=== PATIENT | male | born 1950 | race Caucasian/White ===

== ENCOUNTER 2023-12-26 17:52 | Emergency (ER) | payer MEDICARE, SELFPAY ==
[2023-12-26 17:52] VITALS: BMI 28.6
[2023-12-26 17:56] VITALS: BP 117/80
--- NOTE | 2023-12-26 18:40 | ED.GENMED ---
History of Present Illness
General
Chief Complaint: Musculo-Skeletal Complaint
Source: patient
Exam Limitations: none
Time Seen by Provider: 12/26/23 18:30
Travel History
Have you had any contact with someone who has COVID-19?: No
Do you have any symptoms of coronavirus? Fever > 100 degrees, chills, cough, shortness of breath, sore throat, loss of taste or smell, muscle aches, or headache?: No
History of Present Illness
History of Present Illness:
This is a 73 year old male that comes in with c/o low back pain. States that his pain started 3-4 weeks ago and there was no injury. States that today at 10am he went to get out of a chair and had acute pain. States that this lasted for a few
mini and his gave him Advil with Tylenol. States that he just wanted to mention that 3-4 days ago he also had yellowish discharge form his nose and it was gone in 1-2 days. Denies any fever, chills, chest pain, SOB, abd pain, nausea, vomiting,
diarrhea, bowel or bladder incont, headache, dizziness, urinary burning.
Past History
Past History
ED Past Medical History: CVA (Slight left sided tremor of hand ), HTN and Hypercholesterolemia
ED Past Surgical History: Other (Nola-Fernandez tear with repair, Hemorrhoidectomy)
Social History
Tobacco: Smoker (occasional cigar, )
Alcohol: Occasional
Personal:
Living: with family
Review of Systems
Review of Systems
All Other Systems: ROS reviewed and negative except as documented in HPI and ROS
Constitutional: Reports no symptoms; Denies fever or chills
EENT: Reports no symptoms
Respiratory: Reports no symptoms; Denies cough or trouble breathing
Cardiac: Reports no symptoms; Denies chest pain
ABD/GI: Reports no symptoms; Denies abdominal pain, nausea, vomiting or diarrhea
: Reports no symptoms; Denies dysuria, frequency, incontinence or urgency
Musculoskeletal: Reports back pain (Low back pain left sided)
Skin: Reports no symptoms
Neurological: Reports no symptoms; Denies dizzy or headache
Psychiatric: Reports no symptoms
Phy Exam
General Physical Exam
General Presentation: no apparent distress
General age: appears stated age
General Skin: warm and dry
General Habitus: normal
General Mental: alert
General Hydration: appears well hydrated
ENT Exam
ENT Exam: TM's normal, pharynx normal and neck supple
Eye Exam
Eye Exam: EOMI
Cardiovascular Exam
Cardiovascular Exam: regular rate/rhythm, no edema, no murmur and normal peripheral pulses
Pulmonary Exam
Pulmonary Exam: lungs clear, no respiratory distress, no rales, chest non tender, no crackles, no rhonchi, no wheezing and no cough
Musculoskeletal Exam
Musculoskeletal Exam: full ROM, no edema and other (Negative for any spinal tenderness with palpation. Negative for pain with straight leg raise, turning side to side or bending forward. Some discomfort with going up on his toes.)
Skin Exam
Skin Exam: normal color, warm/dry, no rash and no petechia
Psychiatric Exam
Psychiatric Exam: normal mood/affect
Course
Orders/Labs/Results
Orders:
Orders
12/26/23 18:39
Lumbar Spine Complete, 4 View [CR Lumbar Spine Comp Min 4 Vw*] Urgent
Comment:
Reason For Exam: Low back pain
Vital Signs
Initial and Last Documented VS:
Initial Vital Signs
Temp Pulse Resp BP Pulse Ox
97.6 F 72 20 117/80 99
12/26/23 17:56 12/26/23 17:56 12/26/23 17:56 12/26/23 17:56 12/26/23 17:56
Last Documented Vital Signs
Temp Pulse Resp BP Pulse Ox
97.6 F 72 20 117/80 99
12/26/23 17:56 12/26/23 17:56 12/26/23 17:56 12/26/23 17:56 12/26/23 17:56
MDM/Problems Addressed
Differential Diagnosis Includes:
Degenerative disc disease
MDM/Problems Addressed:
This is a 73 year old male that comes in with c/o low back pain. State that this has been going on for the past 3-4 weeks but today he he tried to get out of a chair and had severe pain. States that this lasted a few min. State that he took Advil
with Tylenol and this helped some. Denies any injury or falls.
Will get X-ray of the Lumbar spine .
back into see patient. Explained that his X-ray shows Degenerative changes of the Lumbar spine. Will have patient use Tylenol arthritis and an NSAID and alternate for pain control. Patient to follow up with the color specialist for further
evaluation. Patient can use heat or ice to the low back. Return with any concerns.
Chronic conditions affecting care:
NA
Acute Exacerbation and/or Progression of Chronic Illness:
NA
*Radiology
Radiology exam reviewed: radiology read reviewed (Lumbar SPINE-CHRONIC DEGENERATIVE CHANGES OF THE LUMBAR SPINE)
*Pulse Oximetry
Patient hypoxic: no
*EKG
Interpreted by ED Provider?: NA
Rate: EKG- N/A
*Motor Vehicle Lecturer Interpretation
Rate: Motor Vehicle Lecturer- N/A
*Critical Care Note
Total Time (30-74mins, 75-104mins- exclusive of procedures): Not Applicable
ED Attending Note
-
Portions of this chart may have been created with voice recognition software.� Occasional wrong word or��sound alike� substitutions may have occurred due to the inherent limitations of voice recognition software.
Discharge Plan
Departure
Patient Disposition: Home (Routine Discharge)
Date of Disposition: 12/26/23
Time of Disposition: 20:36
Patient with high blood pressure during this ER visit?: No
Condition: Good
Covid-19: Not Applicable
Discharge Problem:
Low back pain
Instructions: Low back pain in adults
Prescriptions:
No Action
atorvastatin 40 mg Tablet
40 mg PO DAILY
lisinopril 20 mg Tablet
20 mg PO DAILY
Referrals:
Renan Samayoa MD [Active] - Call in 1-3 days for appt
Lawson Weir DO [Family Provider] - Call in 1-3 days for appt
Activity Restrictions/Additional Instructions:
As discussed your X-ray shows that you had degenerative changes of the low back. This can be further evaluation by the color specialist. You may use Tylenol arthritis for pain and alternate with Ibuprofen 600mg every 6 hours for pain. You may
also use heat or ice to the low back to help with pain control. You nasal discharge had nothing to do with the low back pain. Please follow up with the family doctor as needed. IF YOU HAVE ANY OTHER CONCERNS PLEASE RETURN TO THE EMERGENCY ROOM.
Interventions
Interventions:
*Risk Screen - Suicide Last Done: 12/26/23 18:42
*General Assessment Last Done: 12/26/23 18:41
*Neglect/Abuse Screening Last Done: 12/26/23 18:42
*ED COVID-19 Vaccine History Last Done: 12/26/23 18:41
ED-Musculoskeletal Assessment Last Done: 12/26/23 18:42
Discharge Date and Time
Print Language: MONGOLIAN
[2023-12-26 20:55] VITALS: BP 112/64
== END 2023-12-26 20:55 | disposition home or self-care (01) ==
LOC: EMR 17:52
PROVIDERS: EMERGENCY PHYSICIAN Emergency Medicine; FAMILY PHYSICIAN Internal Medicine
DX: M54.50 Low back pain, unspecified (principal); I10 Essential (primary) hypertension; E78.00 Pure hypercholesterolemia, unspecified; F17.200 Nicotine dependence, unspecified, uncomplicated; Z86.73 Personal history of transient ischemic attack (TIA), and cerebral infarction without residual deficits; Z87.19 Personal history of other diseases of the digestive system
CPT/HCPCS: 99283; 72110

== ENCOUNTER → 2025-05-30 06:36 | Outpatient (REF) | payer MEDICARE, SELFPAY ==
[2025-05-30 08:44] LABS: Hematocrit 47.4 % (39.0-52.0); Hemoglobin 16.1 g/dL (13.0-18.0); Mean Corp Hgb Conc. 34.0 g/dL (33.0-37.0); Mean Corpuscular Volume 89.8 fL (80.0-94.0); Platelet Count 167 10^3/uL (130-400); Red Cell Dist. Width 12.3 % (11.5-14.5)
[2025-05-30 09:54] LABS: Blood Urea Nitrogen 25 mg/dl (9-20); Calcium 9.3 mg/dl (8.4-10.2); Carbon Dioxide 26 mmol/L (22-30); Chloride 110 mmol/L (98-107); Glucose 96 mg/dl (70-99); Potassium 4.4 mmol/L (3.5-5.1); Sodium 143 mmol/L (135-145); eGFR > 60.00
== END ==
LOC: SDSPAT 06:36
PROVIDERS: ATTENDING PHYSICIAN Surgery; FAMILY PHYSICIAN Family Medicine
DX: Z01.818 Encounter for other preprocedural examination (principal)
CPT/HCPCS: 36415; 80048; 85027; 93005

== ENCOUNTER 2025-06-12 05:52 | Day surgery (SDC) | payer MEDICARE, SELFPAY ==
[2025-05-30 14:08] VITALS: BMI 27.7
[2025-06-12] VITALS (8 sets, daily range): BP systolic 142–183; BP diastolic 62–99; BMI 27.7
[2025-06-12] MEDS: TYLENOL 1000 MG PO (06:13)
[2025-06-12] MEDS: NORMOSOL-R/PLASMALYTE-A 1000 IV (06:22)
--- NOTE | 2025-06-12 06:52 | HP.FOC2 ---
Focused History & Physical
Chief Complaint
HPI:
Chief Complaint: Bilateral inguinal hernias, umbilical hernia
HPI / Indication for Planned Procedure: Patient is a 75-year-old male with a longstanding history of an umbilical hernia that has been slowly enlarging in size over the years. He has also taken note of inguinal swelling right side larger than left.
At times it is more full and difficult to reduce and he has occasional discomfort in the area. Physical examination confirmed the presence of reducible umbilical hernia and bilateral inguinal hernias. After discussions regarding treatment options
patient presents today for scheduled operative correction.
Relevant Past Medical History: Other (History right-sided CVA and vertebral artery stenosis, paroxysmal SVT, hypertension, hyperlipidemia, chronic fatigue depression and vitamin D deficiency)
Relevant Social History: Negative
Relevant Family History: Negative
Relevant Past Surgical History: Negative
Review of Systems
Review of Pertinent Systems: All Systems Negative
Medication
See Medication form for detailed medications: Yes
Medication List (including Herbals & OTC):
atorvastatin 40 mg tablet 40 mg PO DAILY 01/24/23
lisinopril 20 mg tablet 20 mg PO DAILY 01/24/23
Medications Reviewed: Yes
Allergies and Reactions
Patient has Allergies: Yes
Noted Allergies and Reactions:
Allergy/AdvReac Type Severity Reaction Status Date / Time
bupropion (From Wellbutrin) Allergy some Verified 06/12/25 06:12
swelling
of lips
and face,
warm and
clammy skin
Pertinent Physical Exam
All Other Systems: Negative
Head/Neck: Normal
Lungs: Normal
Heart: Normal
Abdomen: Other (Reducible umbilical hernia) and Other (Bilateral inguinal hernias right side larger than left)
Extremities: Normal
Neurological: Normal
Diagnosis / Assessment
75-year-old male presenting for scheduled operative correction bilateral inguinal hernias and umbilical hernia
Plan / Procedure
Open umbilical hernia repair with mesh; robotic assisted laparoscopic repair of bilateral inguinal hernias with mesh
Anesthesia/Sedation to be done by Anesthesia Provider: Yes
--- NOTE | 2025-06-12 06:55 | W.SUR.PREOP ---
Pre-Operative Surgical Note
-
I have examined this patient prior to the performance of the scheduled procedure.
The patient's condition is unchanged from the time of the current History and
Physical and the patient is able to undergo the scheduled procedure.
--- NOTE | 2025-06-12 10:37 | W.IMMPOSTOP ---
Surgical Immed Post Op Note
-
Primary Surgeon: Fidel Irby MD
Assisting Surgeon: None
Pre-op Diagnosis: Bilateral inguinal hernias
Umbilical hernia
Post-op Diagnosis: Bilateral inguinal hernias-direct
Umbilical hernia 2 cm
Procedure Performed: Robotic assisted laparoscopic BOY repair bilateral inguinal hernias with mesh; 3D max large regular weight
Open umbilical hernia pair with mesh; Ventralex ST 6.4 cm round
Anesthesia Type: GETA +0.25% Marcaine with epi
Specimen / Cultures: None
Estimated Blood Loss: 12 mL
Complications: None immediate
Operative Findings: Bilateral direct inguinal hernias. Indirect and femoral spaces normal. No significant lipoma of spermatic cord. Plication of pseudosac with 2-0 PDS STRATAFIX. 3D max large regular weight mesh repair x 2 secured to Tres's
ligament with 2-0 Vicryl stitch x 2
2 cm umbilical hernia. Open repair. Underlay preperitoneal mesh Ventralex ST 6.4 cm round. Closure of fascial defect with 0 PDS STRATAFIX.
Patient's updated postoperatively via phone call
[2025-06-12 10:56] LABS: Glucose - Point of Care 123 mg/dl (70-99)
--- NOTE | 2025-06-12 11:15 | PTCARENOTE ---
Addendum 1046 Patient arrived very disoriented o his surroundings, gazing and speech was garbled. Patient able to follow commands. Left side weakness(baseline). MANDY MARY. Diaphoretic accu check obtained WNL. DEVELOPMENT OFFICER notified Dr López for
evaluation.
--- NOTE | 2025-06-12 11:21 | PTCARENOTE ---
Addendum 1100 Patient speech is improved/clear, remains AAOX3, VSS,TYRA. Continues to follow commands, however gaze continues but able to make eye contact when asked.
--- NOTE | 2025-06-12 11:23 | PTCARENOTE ---
Addendum 1110 Dr López at bedside and evaluated patient. Assessment appropriate, no new orders
[2025-06-12] MEDS: ZOFRAN 4 MG IV (12:04)
== END 2025-06-12 12:45 | disposition home or self-care (01) ==
LOC: SDS 05:52
PROVIDERS: ATTENDING PHYSICIAN Surgery; FAMILY PHYSICIAN Family Medicine
DX: K40.20 Bilateral inguinal hernia, without obstruction or gangrene, not specified as recurrent (principal); K42.9 Umbilical hernia without obstruction or gangrene
CPT/HCPCS: 49650; 82962; C1781